=== PATIENT | male | born 1980 ===

== ENCOUNTER 2019-04-24 09:33 | Day surgery (SDC) | payer OTHER ==
[2019-04-24] VITALS (8 sets, daily range): BP systolic 124–154; BP diastolic 74–80
[~2019-04-24] VITALS: Ht 167.6 cm; Wt 71.7 kg
[~2019-04-24 09:33] MED LIST: NKM
--- NOTE | 2019-04-24 10:49 | Anethesia Preoperative Eval ---
Anesthesia Pre-op PMH/ROS General Date of Evaluation: Apr 24, 2019 Anesthesiologist: Refugio ASA Score: ASA 1 Mallampati Score Class I : Soft palate, uvula, fauces, pillars visible Class II: Soft palate, uvula, fauces visible Class III: Soft palate, base of uvula visible Class IV: Only hard plate visible Mallampati Classification: Class II Surgeon: Elizabeth Diagnosis: Anal fistula Surgical Procedure: Anal fistulotomy Anesthesia History: none Family History: no anesthesia problems Allergies: Coded Allergies: No Known Allergies (Unverified , 04/23/19) Medications: see eMAR Patient NPO?: Yes NPO Date: Apr 23, 2019 NPO Time: 22:00 Past Medical History Cardiovascular: Denies: HTN, CAD, GA, valve dz, arrhythmia, other Pulmonary: Denies: asthma, COPD, THI, other Gastrointestinal/Genitourinary: Denies: GERD, CRI, ESRD, other Neurologic/Psychiatric: Denies: dementia, CVA, depression/anxiety, TIA, other Endocrine: Denies: DM, hypothyroidism, steroids, other HEENT: Denies: cataract (L), cataract (R), glaucoma, TYONEK (L), TYONEK (R), other Hematology/Immune: Denies: anemia, DVT, bleeding disorder, other Musculoskeletal/Integumentary: Denies: OA, RA, DJD, DDD, edema, other PSxH Narrative: Denies Anesthesia Pre-op Phys. Exam Physician Exam Last Vital Signs Date Time Temp Pulse Resp B/P (MAP) Pulse Ox O2 Delivery O2 Flow Rate FiO2 04/24/19 10:08 97.9 94 20 133/75 100 Room Air Constitutional: NAD Cardiovascular: RRR Respiratory: CTA Airway Exam Mallampati Score: Class II MO: full ROM: full Teeth: intact Anesthesia Pre-op A/P Labs see chart Risk Assessment & Plan Assessment: ASA 1 Plan: MAC Status Change Before Surgery: No Pre-Antibiotics Drug: Kaet Tee MD Apr 24, 2019 10:49
--- NOTE | 2019-04-24 12:02 | Pre-Procedure Note/Attestation ---
Pre-Procedure Note/Attestation Complete Prior to Procedure Planned Procedure: not applicable Procedure Narrative: Exam under anesthesia, anal fistulotomy, possible seton placement Indications for Procedure Pre-Operative Diagnosis: [id number] Attestation I attest that I discussed the nature of the procedure; its benefits; risks and complications; and alternatives (and the risks and benefits of such alternatives ), prior to the procedure, with the patient (or the patient's legal financial foundations representative). I attest that, if there was a reasonable possibility of needing a blood transfusion, the patient (or the patient's legal financial foundations representative) was given the [facility] standardized written summary, pursuant to the Nickolas Lashay Blood Safety Act ([place] Health and Safety Code # 1645, as amended). I attest that I re-evaluated the patient just prior to the surgery and that there has been no change in the patient's H&P, except as documented below: Mireille Johnson MD Apr 24, 2019 12:01
[2019-04-24] MEDS ORDERED: LR 1000ml ONE (13:00)
[2019-04-24] MEDS ORDERED: Sterile Water Irrig 1000ml IRRIG ONE (13:00)
[2019-04-24] MEDS ORDERED: NS Irrig 1000ml ONE (13:00)
[2019-04-24] MEDS ORDERED: Lidocaine 1% MPF 10mg/ml 5ml ONE (13:09)
[2019-04-24] MEDS ORDERED: fentaNYL 100 mcg/2 mL IV ONE (13:09)
[2019-04-24] MEDS ORDERED: Midazolam 2mg/2ml Inj ONE (13:09)
[2019-04-24] MEDS ORDERED: Propofol 200mg/20ml IV ONE (13:09)
[2019-04-24] MEDS ORDERED: Dexamethasone 4mg/ml vial ONE (13:13)
[2019-04-24] MEDS ORDERED: EPINEPHrine 1mg/1ml Amp ONE (13:13)
[2019-04-24] MEDS ORDERED: Ropivacaine 5mg/ml Vial 30ml INJ ONE (13:13)
[2019-04-24] MEDS ORDERED: DiphenhydrAMINE 50mg/ml Inj ONE (13:15)
--- NOTE | 2019-04-24 13:44 | Brief Operative Note ---
Immediate Post Operative Note Operative Note Chief Complaint: anal discharge Pre-op Diagnosis: [id number] Post-op Diagnosis: same Post-op Diagnosis: same as pre-op Findings: consistent w/pre-op dx studies Surgeon: Mireille Johnson MD Anesthesiologist: Kate Huff MD Anesthesia: moderate sedation Specimen: yes Complications: none Condition: stable Fluids: see anesthesia record Estimated Blood Loss: minimal Drains: none Implant(s) used?: No Mireille Johnson MD Apr 24, 2019 13:44
--- NOTE | 2019-04-24 13:50 | Immediate Post-Op Evaluation ---
Immediate Post-Op Evalulation Immediate Post-Op Evalulation Procedure: Anal fistulotomy Date of Evaluation: Apr 24, 2019 Time of Evaluation: 13:50 IV Fluids: 500 Blood Products: 0 Estimated Blood Loss: min Urinary Output: 0 Blood Pressure Systolic: 154 Blood Pressure Diastolic: 80 Pulse Rate: 102 Respiratory Rate: 17 O2 Sat by Pulse Oximetry: 100 Temperature (Fahrenheit): 97.6 Pain Score (1-10): 0 Nausea: No Vomiting: No Complications 0 Patient Status: awake, reacts, patent, none Hydration Status: adequate Drug: Ancef 1g Given Within 1 Hr of Incision: Yes Kate Maldonado MD Apr 24, 2019 13:49
--- NOTE | 2019-04-24 13:50 | 48 Hour Post Anesthesia Eval ---
Post Anesthesia Evaluation Procedure: Anal fistulotomy Date of Evaluation: Apr 24, 2019 Airway: patent Nausea: No Vomiting: No Pain Intensity: 0 Hydration Status: adequate Cardiopulmonary Status: at baseline Mental Status/LOC: patient returned to baseline Post-Anesthesia Complications: 0 Follow-up care needed: ready to discharge Kate Maldonado MD Apr 24, 2019 13:50
--- NOTE | 2019-04-24 21:15 | Operative Note - Dictated ---
DATE OF OPERATION: 04/24/2019 PREOPERATIVE DIAGNOSIS: Fistula in anal. POSTOPERATIVE DIAGNOSIS: Fistula in ano. PROCEDURE: Exam under anesthesia, anal fistulotomy, seton placement. SURGEON: Mireille Johnson M.D. ANESTHESIOLOGIST: Kate Huff. ANESTHESIA: Propofol sedation with local anesthetic. INDICATION FOR PROCEDURE: The patient is a 38-year-old [place]ian male, who was diagnosed with a fistula in ano 5 years ago when he was in [facility]. Surgery was recommended at that time. The patient moved to the [facility] and has been working and traveling far to [place] for his job and the fistula caused great deal of discomfort. 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 The patient decided to come to proceed with a fistulotomy. DESCRIPTION OF PROCEDURE: Upon consent of the patient, the patient was brought to the operating room and placed in the prone lydia-knife position on the operating table. Once adequate sedation was established, the patient's buttocks were prepped and draped in the usual surgical fashion. A 40 mL of 0.5% ropivacaine mixed with 80 mg of dexamethasone was used as a perianal and pudendal block. A Hill-Bloom retractor was placed in the anal canal. There is some moderate internal hemorrhoids circumferentially. 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 The skin was opened overlying the tract and there was noted to be a small amount of sphincteric complex that was involved which was less than 10%. A curette was used to remove any granulation tissue and sent off the field as specimen. The vessel loop was used as a seton and secured in place using interrupted 0 silk sutures. The anal canal was then irrigated and hemostasis confirmed. The residual anal skin tag in the anterior midline was removed as was any granulation tissue. The patient was awakened and sterile dry dressing was used as a dressing. Sponge and instrument counts were correct at the end of the case. The patient was awakened from anesthesia and brought to the postanesthesia recovery room in stable condition. ESTIMATED BLOOD LOSS: Less than 5 cubic centimeters. DRAINS: None. SPECIMEN: Fistula tract. COMPLICATIONS: None. Mireille Johnson M.D. DR: ENDY JOB#: [id number] CC: Mireille Johnson M.D.; Fax#: [phone] Jignesh Brownlee M.D.
== END 2019-04-24 15:45 | disposition home or self-care (01) ==
LOC: SUR 09:33
DX: K60.3 Anal fistula (principal)
CPT/HCPCS: 46280; J0171; J0690; J1100; J1200; J2250; J2704; J2795; J3010; 94003; 94150